=== PATIENT | female | born 1985 | race Caucasian/White ===

== ENCOUNTER 2017-10-15 19:03 | Emergency (ER) | payer OTHER ==
[2017-10-15] MEDS: HYDROCODONE/APAP (5/325) TAB PO (21:39)
[2017-10-15] MEDS: IBUPROFEN 600 MG TAB PO (21:39)
== END 2017-10-15 23:46 | disposition home or self-care (01) ==
LOC: FTE 19:03
DX: S99.911A Unspecified injury of right ankle, initial encounter (principal); F17.210 Nicotine dependence, cigarettes, uncomplicated; X58.XXXA Exposure to other specified factors, initial encounter; Y92.9 Unspecified place or not applicable
CPT/HCPCS: 73610; 73610-RT; 73630; 99283-25